=== PATIENT | female | born 1990 | race Caucasian/White ===

== ENCOUNTER → 2018-10-11 | Outpatient (CLI) | payer BC | END | disposition home or self-care (01) | LOC: NUC 07:42 | DX: E05.00 Thyrotoxicosis with diffuse goiter without thyrotoxic crisis or storm (principal) | CPT/HCPCS: 78014; A9516 ==

== ENCOUNTER → 2018-11-04 | Outpatient (CLI) | payer BC | END | disposition home or self-care (01) | LOC: NUC 12:47 | DX: E05.90 Thyrotoxicosis, unspecified without thyrotoxic crisis or storm (principal) | CPT/HCPCS: 79005 ==